=== PATIENT | male | born 1995 | race Caucasian/White ===

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

== ENCOUNTER 2017-05-30 19:22 | Emergency (ER) | payer OTHER ==
[~2017-05-30] VITALS: Ht 167.6 cm; Wt 74.8 kg
[2017-05-30 19:22] VITALS: BP 138/81
[~2017-05-30 19:22] MED LIST: PRED20TA PO
[2017-05-30] MEDS ORDERED: IBUP800T19 PO (20:16)
--- NOTE | 2017-05-30 20:16 | PHYS DOC ---
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 He was brought by friends, has and minimally if any weightbearing since this happened. He had a right knee injury in the past with an ACL injury. Patient denies other injury or pain. Review of Systems Review of Systems ] Musculoskeletal: Denies any other joint pain other than right knee Current Medications Current Medications Current Medications Medications (Trade) Dose Ordered Sig/Kenisha Start Time Stop Time Status Last Admin Dose Admin Ibuprofen (Motrin) 600 mg 1X ONCE 05/30/17 20:15 05/30/17 20:16 UNV Allergies Allergies Allergies Coded Allergies Type Severity Reaction Last Updated Verified No Known Drug Allergies 11/09/16 No Physical Exam Physical Exam Constitutional: Well developed, well nourished, no acute distress, non-toxic appearance. Alert, mentating normally, warm and dry. HENT: Normocephalic, atraumatic, bilateral external ears normal, nose normal. [] Eyes: conjunctiva normal, no discharge. [] Neck: Normal range of motion, no stridor. [] Skin: Warm, dry, no erythema, no rash. [] Extremities: Right knee: Appears to have mild generalized swelling. No joint effusion. Tenderness over the medial joint line, mild. The patient is able to actively extend his leg at the knee. Quadriceps patellar tendon intact. Discomfort with exam. I did not attempt ligamentous testing at this time. Neurologic: Alert and oriented X 3, normal motor function, no focal deficits noted. [] EKG EKG [] Radiology/Procedures Radiology/Procedures 4 view x-ray of the right knee read by me. No acute bony abnormality.[] Course & Med Decision Making Course & Med Decision Making Pertinent Labs and Imaging studies reviewed. 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 He has full range of motion with some discomfort. X-rays are negative. I had the patient attempt to weight-bear. He had significant discomfort with pitting a small amount of weight on the knee. Therefore, crutches were provided. He was advised to rest, ice, NSAIDs for 2-3 days, [place] is feeling at that time. [] Dragon Disclaimer Dragon Disclaimer This chart was dictated in whole or in part using Voice Recognition software in a busy, high-work load, and often noisy Emergency Department environment. It may contain unintended and wholly unrecognized errors or omissions. Departure Departure: Impression: Primary Impression: Right knee injury Disposition: HOME, SELF-CARE Condition: STABLE Referrals: EVE POLANCO (PCP) Additional Instructions: X-ray today was negative. Plain x-rays do not show soft tissues including cartilage and ligaments. At this time, use crutches to rest your knee and do not bear weight on it. Elevate as much as possible. Ice at least 15-20 minutes out of every 1-2 hours. Ibuprofen for pain and anti-inflammatory. Follow up in 2-3 days with primary care, they can determine whether you need orthopedic referral. Scripts Ibuprofen (IBUPROFEN) 800 Mg Tablet 1 TAB PO TID, #30 TAB Prov: TRINA VICTOR MD 05/30/17 TRINA VICTOR MD May 30, 2017 20:16
[2017-05-30] MEDS ORDERED: IBUPROFEN 600 MG TABLET. PO ONE (20:30)
--- NOTE | 2017-05-31 08:26 | RAD ---
Right knee with patella, 4 views, 05/30/2017: History: Knee injury No fracture or dislocation is identified. No significant joint effusion is seen. IMPRESSION: No acute right knee abnormality is detected.
== END 2017-05-30 20:27 | disposition home or self-care (01) ==
LOC: ER 19:25
DX: S89.91XA Unspecified injury of right lower leg, initial encounter (principal); W19.XXXA Unspecified fall, initial encounter; Y93.61 Activity, american tackle football; Y99.8 Other external cause status; Y92.89 Other specified places as the place of occurrence of the external cause
CPT/HCPCS: 73564; 99284

== ENCOUNTER 2018-04-27 17:34 | Emergency (ER) | payer OTHER ==
[2018-04-27 17:34] VITALS: BP 157/80
[~2018-04-27 17:34] MED LIST changes: +IBUP800T19 PO
--- NOTE | 2018-04-27 17:37 | ED.ADGEN ---
Past History Past Medical History: No Pertinent History, Other Past Surgical History: No Surgical History Alcohol Use: None Drug Use: None Adult General Chief Complaint Chief Complaint '.. I ve been having an allergic reaction the last couple days.. I think I am allergic to fish.. 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 Pt. states he avoid s fish because he gets allergic reaction. No hx of current ingestion of fish. No travel, new exposures or foods. No hx of immunosuppression. Lip and tongue feel swollen. Pt. normally follows at [facility]. Review of Systems Review of Systems Constitutional: Denies fever or chills [] Eyes: Denies change in visual acuity, redness, or eye pain [] HENT: Denies nasal congestion or sore throat []complaints of swollen lips and tongue Respiratory: Denies cough or shortness of breath [] Cardiovascular: No additional information not addressed in HPI [] GI: Denies abdominal pain, nausea, vomiting, denies : Denies dysuria or hematuria [] Musculoskeletal: Denies back pain or joint pain [] Integument: Denies rash or skin lesions [] Neurologic: Denies headache, focal weakness or sensory changes [] Endocrine: Denies polyuria or polydipsia [] All other systems were reviewed and found to be within normal limits, except as documented in this note. Family History Family History Noncontributory Current Medications Current Medications Current Medications Medications (Trade) Dose Ordered Sig/Kenisha Start Time Stop Time Status Last Admin Dose Admin Albuterol Sulfate (Ventolin Hfa Inhaler) 2 puff 1X ONCE 04/27/18 18:00 04/27/18 18:06 DC 04/27/18 18:15 2 PUFF Diphenhydramine HCl (Benadryl) 50 mg 1X ONCE 04/27/18 18:00 04/27/18 18:06 DC 04/27/18 18:09 50 MG Famotidine (Pepcid) 20 mg STK-MED ONCE 04/27/18 18:05 04/27/18 18:06 DC Prednisone (Prednisone) 60 mg 1X ONCE 04/27/18 18:00 04/27/18 18:06 DC 04/27/18 18:09 60 MG Allergies Allergies Allergies Coded Allergies Type Severity Reaction Last Updated Verified No Known Drug Allergies 11/09/16 No Physical Exam Physical Exam Constitutional: Well developed, well nourished, no acute distress, non-toxic appearance. [] HENT: Normocephalic, atraumatic, bilateral external ears normal, oropharynx moist, no oral exudates, nose clear rhinorrhea. Mild lip swelling. Eyes: PERRLA, EOMI, conjunctiva normal, no discharge. [] Neck: Normal range of motion, no tenderness, supple, no stridor. [] Cardiovascular:Heart rate regular rhythm, no murmur [] Lungs & Thorax: Bilateral breath sounds clear to auscultation []few scattered wheezes Abdomen: Bowel sounds normal, soft, no tenderness, no masses, no pulsatile masses. [] Skin: Warm, dry, no erythema, no rash. [] Back: No tenderness, no CVA tenderness. [] Extremities: No tenderness, no cyanosis, no clubbing, ROM intact, no edema. [] Neurologic: Alert and oriented X 3, normal motor function, normal sensory function, no focal deficits noted. [] Psychologic: Affect normal, judgement normal, mood normal. [] Current Patient Data Vital Signs Vital Signs Date Time Temp Pulse Resp B/P (MAP) Pulse Ox O2 Delivery O2 Flow Rate FiO2 04/27/18 17:34 98.4 65 18 96 Room Air EKG EKG [] Radiology/Procedures Radiology/Procedures [] Course & Med Decision Making Course & Med Decision Making Pertinent Labs and Imaging studies reviewed. (See chart for details). Take prednisone today 5 days. Take Benadryl 25 mg up 4 times a day for itching and allergies. Patient had 2 puffs 4 times a day. Pt. take Pepcid or Zantac 50 mg twice day. Patient follow-up [facility]. Patient return if any concerns. Avoid any products of fish or iodine. [] Final Impression Final Impression 1. Allergic Reaction[] Dragon Disclaimer Dragon Disclaimer This electronic medical record was generated, in whole or in part, using a voice recognition dictation system. ABDELRAHMAN DHALIWAL MD Apr 27, 2018 17:37
[2018-04-27] MEDS ORDERED: diphenhydrAMINE HCL 25 MG CAPSULE PO ONE (18:00)
[2018-04-27] MEDS ORDERED: ALBUTEROL SULFATE 8GM INHALER. INH ONE (18:00)
[2018-04-27] MEDS ORDERED: FAMOTIDINE 20 MG TABLET PO ONE (18:00)
[2018-04-27] MEDS ORDERED: predniSONE 20 MG TABLET PO ONE (18:00)
[2018-04-27] MEDS ORDERED: RANI150T21 PO (18:03)
[2018-04-27] MEDS ORDERED: PRED50TA PO (18:03)
[2018-04-27] MEDS ORDERED: DIPH25CA58 PO (18:03)
[2018-04-27] MEDS ORDERED: FAMOTIDINE 20 MG TABLET ONE (18:05)
== END 2018-04-27 18:15 | disposition home or self-care (01) ==
LOC: ER 17:34
DX: T78.40XA Allergy, unspecified, initial encounter (principal); X58.XXXA Exposure to other specified factors, initial encounter
CPT/HCPCS: 94640; 99284; J7512; J7613; Q0163